=== PATIENT | male | born 1995 | race Two or more races ===

== ENCOUNTER 2024-04-10 05:23 | Emergency (ER) | payer OTHER ==
[~2024-04-10] VITALS: Ht 170.2 cm; Wt 91.2 kg
[2024-04-10] MEDS ORDERED: GENTAMICIN SULFATE 0.15 MG/DR DROPS 5ML OP STA (06:18)
[2024-04-10] MEDS ORDERED: NAPHAZOLINE HCL/PHENIRAMINE 20 DR/ML DROPS OP STA (06:18)
[2024-04-10] MEDS ORDERED: TETRACAINE HCL 20 DR/ML DROPS OP STA (06:18)
[2024-04-10] MEDS ORDERED: DIPHENHYDRAMINE HCL 50 MG/ML VIAL 1ML IV STA (06:19)
[2024-04-10] MEDS ORDERED: METHYLPREDNISOLONE SOD SUCC 125 MG VIAL IV STA (06:20)
[2024-04-10] MEDS ORDERED: NAPHAZOLINE HCL/PHENIRAMINE 20 DR/ML DROPS OP ONE (06:23)
[2024-04-10] MEDS ORDERED: GENTAMICIN SULFATE 0.15 MG/DR DROPS 5ML OP ONE (06:23)
[2024-04-10] MEDS ORDERED: METHYLPREDNISOLONE SOD SUCC 125 MG VIAL ONE (06:24)
[2024-04-10] MEDS ORDERED: DIPHENHYDRAMINE HCL 50 MG/ML VIAL 1ML ONE (06:24)
[2024-04-10 06:56] LABS: HEMATOCRIT 40.7 % (39.0-48.0); HEMOGLOBIN 14.3 g/dL (13-16.00); MEAN CELL VOLUME 84.3 fL (80.0-100.00); MEAN CORPUSCULAR HEMOGLOBIN 29.7 pg (27.00-32.0); MEAN CORPUSCULAR HGB CONC 35.2 g/dl (32.0-36.0); PLATELET COUNT 198 K/uL (150-450); RED BLOOD COUNT 4.82 M/uL (4.00-6.00); RED CELL DISTRIBUTION WIDTH 13.6 % (11.5-14.5)
== END 2024-04-10 09:46 | disposition home or self-care (01) ==
LOC: ER 05:24
PROVIDERS: General Practice
DX: H57.89 Other specified disorders of eye and adnexa (principal)

== ENCOUNTER 2025-02-12 14:58 | Emergency (ER) | payer OTHER ==
[~2025-02-12] VITALS: Ht 170.2 cm; Wt 94.8 kg
[2025-02-12] MEDS ORDERED: METHYLPREDNISOLONE SOD SUCC 125 MG VIAL IM ONE (17:45)
[2025-02-12] MEDS ORDERED: CEFTRIAXONE SODIUM 1,000 MG VIAL IM ONE (17:45)
[2025-02-12] MEDS ORDERED: CEFTRIAXONE SODIUM 1,000 MG VIAL ONE (17:45)
[2025-02-12] MEDS ORDERED: METHYLPREDNISOLONE SOD SUCC 125 MG VIAL ONE (17:45)
[2025-02-12] MEDS ORDERED: LIDOCAINE HCL 1% 10ML VIAL ONE (17:47)
[2025-02-12 18:06] LABS: BASO % 0.4 % (0.1-1.2); EOS # 0.32 (0.04-0.54); HEMATOCRIT 41.7 % (40.1-51.0); HEMOGLOBIN 14.5 g/dL (13.7-17.5); LYMPH # 2.27 (1.18-3.74); LYMPH % 21.4 % (19.3-53.1); MEAN CORPUSCULAR HEMOGLOBIN 29.2 pg (25.6-32.2); MONO # 0.92 (0.24-0.82); MONO % 8.7 % (4.7-12.5); NEUT # 7.03 (1.56-6.13); NEUT % 66.4 % (34.0-71.1); PLATELET COUNT 183 K/uL (163-369); RED BLOOD COUNT 4.97 M/uL (4.63-6.08); RED CELL DISTRIBUTION WIDTH 12.9 % (11.6-14.4)
[2025-02-12 18:35] LABS: COVID-19 AG NEGATIVE (NEGATIVE)
[2025-02-12 18:36] LABS: INFLUENZA A AG NEGATIVE (NEGATIVE); INFLUENZA B AG NEGATIVE (NEGATIVE)
[2025-02-12] MEDS ORDERED: AZITHROMYCIN500 MG PO (19:29)
[2025-02-12] MEDS ORDERED: MEDROLPACK PO (19:29)
[2025-02-12] MEDS ORDERED: PEPCID AC20 MG PO (19:29)
== END 2025-02-12 19:43 | disposition home or self-care (01) ==
LOC: ER 14:58
PROVIDERS: General Practice
DX: J02.9 Acute pharyngitis, unspecified (principal); Z91.013 Allergy to seafood; Z20.822 Contact with and (suspected) exposure to COVID-19

== ENCOUNTER 2025-02-26 07:58 | Emergency (ER) | payer OTHER ==
[~2025-02-26] VITALS: Ht 170.2 cm; Wt 93.9 kg
[~2025-02-26 07:58] MED LIST: AZITHROMYCIN500 MG PO; MEDROLPACK PO; PEPCID AC20 MG PO
[2025-02-26] MEDS ORDERED: CEFTRIAXONE SODIUM 1,000 MG VIAL IM STA (09:06)
[2025-02-26] MEDS ORDERED: HYDROCODONE/CHLORPHEN P-STIREX 5 ML ML PO STA (09:07)
[2025-02-26] MEDS ORDERED: LIDOCAINE HCL 1% 10ML VIAL ONE (09:27)
[2025-02-26] MEDS ORDERED: CEFTRIAXONE SODIUM 1,000 MG VIAL ONE (09:27)
== END 2025-02-26 09:43 | disposition home or self-care (01) ==
LOC: ER 08:09
DX: J06.9 Acute upper respiratory infection, unspecified (principal); R05.9 Cough, unspecified; Z91.013 Allergy to seafood